=== PATIENT | female | born 1980 | race American Indian/Alaskan Native ===

== ENCOUNTER 2018-07-13 12:26 | Emergency (ER) | payer MEDICAID, OTHER ==
[2018-07-13 12:36] VITALS: BP 108/64
[2018-07-13] MEDS ORDERED: BICILLIN L-A IM ONE (13:15)
[2018-07-13] MEDS ORDERED: DECADRON IM ONE (13:15)
--- NOTE | 2018-07-13 13:19 | Emergency Department Report ---
ED ENT HPI - General Chief complaint: Sore Throat Stated complaint: THROAT FEELS SWOLLEN Time Seen by Provider: 07/13/18 13:05 Source: patient Mode of arrival: Ambulatory Limitations: No Limitations - History of Present Illness Initial comments: Patient is a 38-year-old Female who is presenting with sore throat. Patient states pain is greater on the right side. Patient has also had some muscle fevers. She denies any cough congestion. Symptoms started early this morning. The patient denies nausea vomiting diarrhea. Pain is 8 out of 10 or swallow - Related Data Home Medications Medication Instructions Recorded Confirmed Last Taken Vit 90/Iron Fum/Folic 1 tab PO DAILY 02/22/14 09/12/14 02/15/14 [ Formula] Previous Rx's Medication Instructions Recorded Last Taken Type Ibuprofen [Motrin 800 MG tab] 800 mg PO Q6H PRN #30 tablet 09/12/14 Unknown Rx oxyCODONE /ACETAMINOPHEN [Percocet 1 tab PO Q4HR #30 tablet 09/12/14 Unknown Rx 5/325 mg] HYDROcodone/ACETAMINOPHEN 15 ml PO Q6HR PRN #150 solution 07/13/18 Unknown Rx [Hydrocodon-Acetamin 7.5-325/15] predniSONE [Deltasone] 20 mg PO QDAY #5 tab 07/13/18 Unknown Rx Allergies Allergy/AdvReac Type Severity Reaction Status Date / Time No Known Allergies Allergy Verified 07/13/18 12:33 ED Dental HPI - General Chief complaint: Sore Throat Stated complaint: THROAT FEELS SWOLLEN Time Seen by Provider: 07/13/18 13:05 Source: patient Mode of arrival: Ambulatory Limitations: No Limitations - Related Data Home Medications Medication Instructions Recorded Confirmed Last Taken Vit 90/Iron Fum/Folic 1 tab PO DAILY 02/22/14 09/12/14 02/15/14 [ Formula] Previous Rx's Medication Instructions Recorded Last Taken Type Ibuprofen [Motrin 800 MG tab] 800 mg PO Q6H PRN #30 tablet 09/12/14 Unknown Rx oxyCODONE /ACETAMINOPHEN [Percocet 1 tab PO Q4HR #30 tablet 09/12/14 Unknown Rx 5/325 mg] HYDROcodone/ACETAMINOPHEN 15 ml PO Q6HR PRN #150 solution 07/13/18 Unknown Rx [Hydrocodon-Acetamin 7.5-325/15] predniSONE [Deltasone] 20 mg PO QDAY #5 tab 07/13/18 Unknown Rx Allergies Allergy/AdvReac Type Severity Reaction Status Date / Time No Known Allergies Allergy Verified 07/13/18 12:33 ED Review of Systems ROS: Stated complaint: THROAT FEELS SWOLLEN Other details as noted in HPI Comment: All other systems reviewed and negative ED Past Medical Hx - Past Medical History Hx Hypertension: No Hx Congestive Heart Failure: No Hx Diabetes: No Hx Deep Vein Thrombosis: No Hx Renal Disease: No Hx Sickle Cell Disease: No Hx Seizures: No Hx Asthma: No Hx COPD: No Hx HIV: No - Surgical History Additional Surgical History: 2005 - Social History Smoking Status: Never Smoker Substance Use Type: None - Medications Home Medications: Home Medications Medication Instructions Recorded Confirmed Last Taken Type Vit 90/Iron Fum/Folic 1 tab PO DAILY 02/22/14 09/12/14 02/15/14 History [ Formula] Ibuprofen [Motrin 800 MG tab] 800 mg PO Q6H PRN #30 tablet 09/12/14 Unknown Rx oxyCODONE /ACETAMINOPHEN [Percocet 1 tab PO Q4HR #30 tablet 09/12/14 Unknown Rx 5/325 mg] HYDROcodone/ACETAMINOPHEN 15 ml PO Q6HR PRN #150 solution 07/13/18 Unknown Rx [Hydrocodon-Acetamin 7.5-325/15] predniSONE [Deltasone] 20 mg PO QDAY #5 tab 07/13/18 Unknown Rx ED Physical Exam - General Limitations: No Limitations General appearance: alert, in no apparent distress - Head Head exam: Present: atraumatic, normocephalic - Eye Eye exam: Present: normal appearance - ENT ENT exam: Present: mucous membranes moist, other (posterior pharynx and tonsils are swollen and erythematous bilaterally right greater than left uvula is midline there's some palatal petechiae present.) - Neck Neck exam: Present: normal inspection, lymphadenopathy - Respiratory Respiratory exam: Present: normal lung sounds bilaterally. Absent: respiratory distress - Cardiovascular Cardiovascular Exam: Present: regular rate, normal rhythm. Absent: systolic murmur, diastolic murmur, rubs, gallop - GI/Abdominal GI/Abdominal exam: Present: soft, normal bowel sounds - Extremities Exam Extremities exam: Present: normal inspection - Back Exam Back exam: Present: normal inspection - Neurological Exam Neurological exam: Present: alert, oriented X3 - Psychiatric Psychiatric exam: Present: normal affect, normal mood - Skin Skin exam: Present: warm, dry, intact, normal color. Absent: rash ED Course Vital Signs 07/13/18 12:34 Temperature 100 F H Pulse Rate 91 H Respiratory 20 Rate Blood Pressure 108/64 O2 Sat by Pulse 98 Oximetry ED Medical Decision Making - Medical Decision Making Patient meets [facility] criteria for Treatment for strep will be discharged home. Critical care attestation.: If time is entered above; I have spent that time in minutes in the direct care of this critically ill patient, excluding procedure time. ED Disposition Clinical Impression: Pharyngitis Qualifiers: Pharyngitis/tonsillitis etiology: unspecified etiology Qualified Code(s): J02.9 - Acute pharyngitis, unspecified Disposition: - TO HOME OR SELFCARE Is pt being admited?: No Does the pt Need Aspirin: No Condition: Stable Instructions: Pharyngitis (ED) Referrals: PRIMARY CARE, [Primary Care Provider] - 3-5 Days Forms: Work/School Release Form(ED) Time of Disposition: :18
== END 2018-07-13 13:40 | disposition home or self-care (01) ==
LOC: ED 12:26
DX: J02.9 Acute pharyngitis, unspecified (principal)
CPT/HCPCS: 96372; 99282; J0561; J1100

== ENCOUNTER 2018-07-17 12:57 | Emergency (ER) | payer OTHER ==
[2018-07-17 13:20] VITALS: BP 114/53
[2018-07-17] MEDS ORDERED: TYLENOL ONE (13:23)
[2018-07-17] MEDS ORDERED: TYLENOL PO ONE (13:25)
--- NOTE | 2018-07-17 14:34 | XRay Report ---
LEFT WRIST, 3 views: HISTORY: Pain in wrist. Normal bone mineralization. No fracture, bone lesion or dislocation is identified. No significant degenerative changes. The scapholunate interval appears mildly widened measuring 4 mm. This could represent scapholunate ligament injury. IMPRESSION: Possible scapholunate ligament injury. Please correlate with the patient.
== END 2018-07-17 15:29 | disposition left against medical advice (07) ==
LOC: ED 12:57
DX: M79.89 Other specified soft tissue disorders (principal); R10.9 Unspecified abdominal pain; Z53.21 Procedure and treatment not carried out due to patient leaving prior to being seen by health care provider
CPT/HCPCS: 36415; 84703

== ENCOUNTER 2018-07-17 18:12 | Emergency (ER) | payer OTHER ==
[2018-07-17 19:11] VITALS: BP 108/63
--- NOTE | 2018-07-17 22:07 | Emergency Department Report ---
ED General Adult HPI - General Chief complaint: Extremity Injury, Upper Stated complaint: SWOLLEN WRIST/STOMACH PAIN Time Seen by Provider: 07/17/18 22:06 Source: patient Mode of arrival: Ambulatory Limitations: No Limitations - History of Present Illness Initial comments: 38-year-old -[place] female who was seen here earlier but had to leave to attend to her children comes back in stating that she has scratched and when she did she heard a pop to her left hand. Patient now complains of swelling and pain. Patient also complains of lower abdominal cramping and dysuria with pelvic pressure and frequency of urination. Patient denies any fever or chills no nausea no vomiting. -: days(s) (3 for urinary frequency and dysuria, 1 day with left hand swelling and pain) Location: abdomen, upper extremity (left hand pain) Severity scale (0 -10): 10 (left hand) Improves with: none Worsens with: movement Associated Symptoms: denies: chest pain, fever/chills, loss of appetite, nausea/ vomiting Treatments Prior to Arrival: none - Related Data Home Medications Medication Instructions Recorded Confirmed Last Taken Vit 90/Iron Fum/Folic 1 tab PO DAILY 02/22/14 09/12/14 02/15/14 [ Formula] Previous Rx's Medication Instructions Recorded Last Taken Type Ibuprofen [Motrin 800 MG tab] 800 mg PO Q6H PRN #30 tablet 09/12/14 Unknown Rx HYDROcodone/ACETAMINOPHEN 15 ml PO Q6HR PRN #150 solution 07/13/18 Unknown Rx [Hydrocodon-Acetamin 7.5-325/15] predniSONE [Deltasone] 20 mg PO QDAY #5 tab 07/13/18 Unknown Rx Ibuprofen [Motrin 800 MG tab] 800 mg PO Q8HR PRN 10 Days #30 07/18/18 Unknown Rx tablet metroNIDAZOLE [Flagyl] 500 mg PO Q8HR 7 Days #21 tablet 07/18/18 Unknown Rx oxyCODONE /ACETAMINOPHEN [Percocet 1 tab PO Q4HR #12 tablet 07/18/18 Unknown Rx 5/325 mg] Allergies Allergy/AdvReac Type Severity Reaction Status Date / Time No Known Allergies Allergy Verified 07/13/18 12:33 ED Review of Systems ROS: Stated complaint: SWOLLEN WRIST/STOMACH PAIN Other details as noted in HPI Constitutional: denies: chills, fever Eyes: denies: eye pain, eye discharge, vision change ENT: denies: ear pain, throat pain Respiratory: denies: cough, shortness of breath, wheezing Cardiovascular: denies: chest pain, palpitations Endocrine: no symptoms reported Gastrointestinal: abdominal pain. denies: nausea, vomiting Genitourinary: dysuria, frequency, other (pressure) Musculoskeletal: joint swelling (left hand), arthralgia (left hand) Skin: denies: rash, lesions Neurological: denies: headache, weakness, paresthesias Psychiatric: denies: anxiety, depression Hematological/Lymphatic: denies: easy bleeding, easy bruising ED Past Medical Hx - Past Medical History Hx Hypertension: No Hx Congestive Heart Failure: No Hx Diabetes: No Hx Deep Vein Thrombosis: No Hx Renal Disease: No Hx Sickle Cell Disease: No Hx Seizures: No Hx Asthma: No Hx COPD: No Hx HIV: No - Surgical History Additional Surgical History: 2005 - Social History Smoking Status: Never Smoker Substance Use Type: None - Medications Home Medications: Home Medications Medication Instructions Recorded Confirmed Last Taken Type Vit 90/Iron Fum/Folic 1 tab PO DAILY 02/22/14 09/12/14 02/15/14 History [ Formula] Ibuprofen [Motrin 800 MG tab] 800 mg PO Q6H PRN #30 tablet 09/12/14 Unknown Rx HYDROcodone/ACETAMINOPHEN 15 ml PO Q6HR PRN #150 solution 07/13/18 Unknown Rx [Hydrocodon-Acetamin 7.5-325/15] predniSONE [Deltasone] 20 mg PO QDAY #5 tab 07/13/18 Unknown Rx Ibuprofen [Motrin 800 MG tab] 800 mg PO Q8HR PRN 10 Days #30 07/18/18 Unknown Rx tablet metroNIDAZOLE [Flagyl] 500 mg PO Q8HR 7 Days #21 tablet 07/18/18 Unknown Rx oxyCODONE /ACETAMINOPHEN [Percocet 1 tab PO Q4HR #12 tablet 07/18/18 Unknown Rx 5/325 mg] ED Physical Exam - General Limitations: No Limitations ED Course Vital Signs 07/17/18 19:06 Temperature 98.5 F Pulse Rate 82 Respiratory 18 Rate Blood Pressure 108/63 O2 Sat by Pulse 100 Oximetry Critical care attestation.: If time is entered above; I have spent that time in minutes in the direct care of this critically ill patient, excluding procedure time. ED Disposition Clinical Impression: Left hand pain, BV (bacterial vaginosis), Pelvic pressure in female Injury of ligament of left hand Qualifiers: Encounter type: initial encounter Qualified Code(s): S69.92XA - Unspecified injury of left wrist, hand and finger(s), initial encounter Disposition: TO HOME OR SELFCARE Is pt being admited?: No Does the pt Need Aspirin: No Condition: Stable Instructions: Bacterial Vaginosis (ED), Hand Sprain (ED), Wrist Injury (ED) Additional Instructions: Please complete antibiotics as prescribed. Please return back to the hospital medical records and 5-7 days to obtain near cultures. Please continue to wear her splint. Please take her pain medication as needed. Please do not operate heavy machinery while taking the Percocet. Please follow-up with the hand specialist as soon as possible within the next 3-5 days. Prescriptions: Ibuprofen [Motrin 800 MG tab] 800 mg PO Q8HR PRN 10 Days #30 tablet PRN Reason: Pain , Severe (7-10) metroNIDAZOLE [Flagyl] 500 mg PO Q8HR 7 Days #21 tablet oxyCODONE /ACETAMINOPHEN [Percocet 5/325 mg] 1 tab PO Q4HR #12 tablet Referrals: PRIMARY CAREMD [Primary Care Provider] - 3-5 Days LAYTON ORTEZ MD [Staff Physician] - 3-5 Days ALISE PARK MD [Referring] - 3-5 Days Forms: STI Treatment and Prevention, Work/School Release Form(ED)
[2018-07-17 22:16] LABS: Bilirubin,Urine NEG (Negative); Blood,Urine NEG (Negative); Color,Urine Yellow (Yellow); Mucus,Urine FEW /HPF; Protein,Urine <15 mg/dL mg/dL (Negative); Urobilinogen,Urine < 2.0 mg/dL (<2.0); WBC,Urine < 1.0 /HPF (0.0-6.0)
[2018-07-17] MEDS ORDERED: ULTRAM PO ONE (22:20)
== END 2018-07-18 02:00 | disposition home or self-care (01) ==
LOC: ED 18:12
DX: S69.92XA Unspecified injury of left wrist, hand and finger(s), initial encounter (principal); N76.0 Acute vaginitis; B96.89 Other specified bacterial agents as the cause of diseases classified elsewhere; X50.9XXA Other and unspecified overexertion or strenuous movements or postures, initial encounter; Y93.89 Activity, other specified; Y99.8 Other external cause status; Y92.89 Other specified places as the place of occurrence of the external cause
CPT/HCPCS: 29280; 81001; 87210; 87591